=== PATIENT | male | born 1960 | race African-American/Black ===

== ENCOUNTER 2018-12-05 07:10 | Emergency (ER) | payer MEDICAID, MEDICARE ==
[~2018-12-05 07:10] MED LIST: ASPI-715 PO; CAR3.125 PO; ISOS30TA51 PO; LISI-357 PO; OXYC-489 PO
[2018-12-05] MEDS ORDERED: ASPIRIN 81 MG CHEW PO ONE (07:20)
--- NOTE | 2018-12-05 07:23 | ER Report ---
History and Physical Time Seen By MD: 07:18 Hx. of Stated Complaint: LEFT SIDED ABD PAIN HPI/ROS CHIEF COMPLAINT: Chest pain HISTORY OF PRESENT ILLNESS: 58-year-old male history of aortic dissection surgical repair comes emergency Department with left-sided chest discomfort the left inferior left costal margin and going on pretty persistently for the last 3 months been getting worse last couple of weeks patient denies any nausea vomiting diarrhea fever chills patient denies shortness of breath or cough patient denies abdominal pain at this time patient has no additional complaints and is described as a dictation dull and aching he had no pain when the discomfort is dissection before REVIEW OF SYSTEMS: Respiratory: No cough, no dyspnea. Cardiovascular: hasa chest pain, no palpitations. Gastrointestinal: No vomiting, no abdominal pain. Musculoskeletal: No back pain. Remainder of the 14 system rev: Yes Allergies: Coded Allergies: No Known Drug Allergies (Verified , 06/10/10) Home Meds Reported Medications Isosorbide Mononitrate (Imdur) 30 Mg Tab.sr.24h, 30 MG PO QDAY, 0 Refills 06/10/10 Oxycodone Hcl/Acetaminophen (Oxycodone-Apap 5-325 Tab) 1 Tab Tablet, 1 TAB PO Q4H, 0 Refills 06/10/10 Aspirin (Aspirin) 81 Mg Tablet.dr, 81 MG PO QDAY, 0 Refills 06/10/10 Lisinopril (Lisinopril) 5 Mg Tablet, 5 MG PO QDAY, 0 Refills 06/10/10 Carvedilol (Coreg) 3.125 Mg Tab, 3.125 MG PO BID, 0 Refills 06/10/10 Reviewed Nurses Notes: Yes Old Medical Records Reviewed: Yes Hx Alcohol Use: Yes (FRIEND STATES 3-4 BEERS DAILY) Constitutional Vital Sign - Last 24 Hours 12/05/18 12/05/18 12/05/18 12/05/18 07:10 07:12 07:16 07:30 Temp 97.3 Pulse 89 78 Resp 12 B/P (MAP) 166/90 (115) 166/90 149/99 (116) Pulse Ox 99 92 O2 Delivery Room Air 12/05/18 12/05/18 12/05/18 12/05/18 07:40 08:10 08:11 08:16 Pulse 94 87 84 Resp 5 B/P (MAP) 149/89 (109) Pulse Ox 100 98 98 12/05/18 12/05/18 08:30 08:46 Pulse 80 Resp 20 B/P (MAP) 143/101 (115) Pulse Ox 93 Physical Exam General Appearance: The patient is alert, has no immediate need for airway protection and no current signs of toxicity. [ ] Eyes: Pupils equal and round no injection. Respiratory: Chest is non tender, lungs are clear to auscultation. Cardiac: regular rate and rhythm [ ] Gastrointestinal: Abdomen is soft and non tender, no masses, bowel sounds normal. Musculoskeletal: Neck: Neck is supple and non tender. Extremities have full range of motion and are non tender. Skin: No rashes or lesions. [ ] DIFFERENTIAL DIAGNOSIS: After history and physical exam differential diagnosis was considered for aortic dissection pulmonary emboli myocardial ischemia muscle strain intercostal muscle strain Medical Decision Making Data Points Result Diagram: 12/05/18 0743 12/05/18 0743 Laboratory Hematology Test 12/05/18 07:43 White Blood Count 15.3 k/uL (4.5-11.0) H Red Blood Count 5.02 M/uL (4.00-5.60) Hemoglobin 15.0 g/dL (14.0-18.0) Hematocrit 44.5 % (42.0-52.0) Mean Corpuscular Volume 88.5 fL (80.0-96.0) Mean Corpuscular Hemoglobin 29.9 pg (26.0-33.0) Mean Corpuscular Hemoglobin Concent 33.8 g/dL (32.0-36.0) Red Cell Distribution Width 13.8 % (11.5-14.5) Platelet Count 260 K/uL (150-450) Mean Platelet Volume 8.9 fL (7.2-11.1) Neutrophils (%) (Auto) 84.7 % (39.4-72.5) H Lymphocytes (%) (Auto) 7.6 % (17.6-49.6) L Monocytes (%) (Auto) 6.6 % (4.1-12.4) Eosinophils (%) (Auto) 0.6 % (0.4-6.7) Basophils (%) (Auto) 0.5 % (0.3-1.4) Nucleated RBC Relative Count (auto) 0.0 /100WBC Neutrophils # (Auto) 13.0 K/uL (2.0-7.4) H Lymphocytes # (Auto) 1.2 K/uL (1.3-3.6) L Monocytes # (Auto) 1.0 K/uL (0.3-1.0) Eosinophils # (Auto) 0.1 K/uL (0.0-0.5) Basophils # (Auto) 0.1 K/uL (0.0-0.1) Nucleated RBC Absolute Count (auto) 0.01 K/uL Chemistry Test 12/05/18 07:43 Sodium Level 135 mmol/L (137-145) Potassium Level 4.3 mmol/L (3.5-5.0) Chloride Level 98 mmol/L (98-107) Carbon Dioxide Level 25 mmol/L (22-30) Blood Urea Nitrogen 11 mg/dl (9-21) Creatinine 0.70 mg/dl (0.66-1.25) Glomerular Filtration Rate Calc > 60.0 Random Glucose 178 mg/dl (75-110) Calcium Level 9.3 mg/dl (8.4-10.2) Total Bilirubin 0.5 mg/dl (0.2-1.3) Aspartate Amino Transf (AST/SGOT) 32 U/L (0-35) Alanine Aminotransferase (ALT/SGPT) 49 U/L (0-56) Alkaline Phosphatase 116 U/L (0-126) Troponin I < 0.012 ng/ml Total Protein 8.2 g/dl (6.3-8.2) Albumin 4.2 g/dl (3.5-5.0) Coagulation Test 12/05/18 07:43 D-Dimer Quantitative (PE/DVT) 1.87 ug/ml (0-0.50) ED Course/Re-evaluation ED Course ED course medical decision-making a 58-year-old male comes in with left-sided pleuritic chest discomfort CT abdomen and pelvis chest demonstrates a large metastatic pancreatic mass consistent with pancreatic carcinoma with lesions to the liver patient was informed of this will follow-up with primary care referral to oncology for further testing and workup and definitive plan Spoke with . of the cancer center a social work will be coming to bedside range department for him to be seen by oncology tomorrow Decision to Disposition Date: Dec 05, 2018 Decision to Disposition Time: 09:15 Depart Departure Latest Vital Signs Vital Signs Date Time Temp Pulse Resp B/P (MAP) Pulse Ox O2 Delivery O2 Flow Rate FiO2 12/05/18 08:46 80 20 93 12/05/18 08:30 143/101 (115) 12/05/18 07:16 97.3 Room Air Impression: Primary Impression: Pancreatic cancer metastasized to liver Condition: Condition Unchanged Disposition: HOME OR SELF-CARE Referrals: SOPHIA COOK DNP, ASSISTANT PROFESSOR OF ARCHAEOLOGY-BC 5 Days Patient Instructions: Pancreatic Cancer (DC) ANATOLIY SAMUEL MD Dec 05, 2018 07:22
[2018-12-05 07:49] LABS: PLATELET COUNT, AUTOMATED 260 K/uL (150-450)
[2018-12-05] MEDS ORDERED: IOPAMIDOL 76% 100 ML INFUS BTL 100 ML ONE (08:00)
--- NOTE | 2018-12-05 08:17 | EKG ---
FACILITY: [facility] PATIENT NAME: RUSS PATEL : [id number] MR: [id number] V: [id number] EXAM DATE: ORDERING PHYSICIAN: ANATOLIY SAMUEL TECHNOLOGIST: JORGE Robertson Reason : Blood Pressure : / mmHG Vent. Rate : 092 BPM Atrial Rate : 092 BPM P-R Int : 158 ms QRS Dur : 084 ms QT Int : 360 ms P-R-T Axes : 078 041 -18 degrees QTc Int : 445 ms Normal sinus rhythm Left ventricular hypertrophy with repolarization abnormality T inversion/flattening consistent with inf/lat ischemia vs normal variant. No previous ECGs available Confirmed by MERY MOULTON ([id number]) on 12/05/2018 1:26:08 PM Referred By: LIZZIE Confirmed By:MERY MOULTON
--- NOTE | 2018-12-05 08:36 | RADIOLOGY IMAGING REPORT ---
FACILITY: PATIENT NAME: Mikhail Boss : 1960 MR: [id number] V: [id number] EXAM DATE: ORDERING PHYSICIAN: ANATOLIY SAMUEL TECHNOLOGIST: Location: [facility] Patient: Mikhail Boss : 1960 Visit/Account:[id number] Date of Sevice: 12/05/2018 Study: Frontal and lateral views of the chest Indication: Left-sided chest pain Comparison study: June 10, 2010 Findings: PA and lateral views of the chest demonstrate no evidence of acute infiltrate. There is no evidence of pleural effusion. There is no evidence of pneumothorax. The patient is status post median sternotomy. There is prominence of the main pulmonary artery. Thi s may represent the presence of pulmonary hypertension. The visualized bony structures are unremarkable. IMPRESSION: No acute infiltrate. There is no evidence of pleural effusion or pneumothorax. There is prominence of the main pulmonary artery. This may represent underlying pulmonary hypertension. Report Dictated By: River Vo at 12/05/2018 8:28 AM Report E-Signed By: River Vo at 12/05/2018 8:29 AM WSN:[id number]
[2018-12-05 09:00] VITALS: BP 135/91
--- NOTE | 2018-12-05 09:09 | RADIOLOGY IMAGING REPORT ---
FACILITY: [facility] - [place] PATIENT NAME: Mikhail Boss : 1960 MR: [id number] V: [id number] EXAM DATE: ORDERING PHYSICIAN: ANATOLIY SAMUEL TECHNOLOGIST: Location: [facility] [place] Patient: Mikhail Boss : 1960 Visit/Account:[id number] Date of Sevice: 12/05/2018 CT CHEST ABDOMEN PELVIS W/CON HISTORY: Left chest pain x1 month. TECHNIQUE: CT chest, abdomen and pelvis with intravenous contrast. One of the following dose optimization techniques was utilized in the performance of this exam: Autom ated exposure control; adjustment of the mA and/or kV according to the patient's size; or use of an i terative reconstruction technique. Specific details can be referenced in the facility's radiology C T exam operational policy. CONTRAST: 75 mL Isovue-370 IV COMPARISON: CTA chest 07/10/2012 11/20/2010 FINDINGS: CHEST: Heart/vessels: Sequela of interposition graft repair ascending aorta. Chronic dissection flap aorti c arch extending into the common origin right brachiocephalic and left common carotid arteries, gross ly unchanged. Central pulmonary artery enlargement suggesting pulmonary hypertension. Mediastinum: Sequela of prior median sternotomy. Lymph nodes: No adenopathy. Lungs/pleura: Chronic appearing pleural parenchymal scarring mid right lung. No discrete pulmonary nodule, mass, infiltrate or pleural fluid. No pneumothorax. Small macroscopic fatty pleural lobule posterior lateral right lung base (3/302). Bones/soft tissues: Sequela of median sternotomy. Small bone island left lateral aspects upper thor acic vertebral body. Mild disc degenerative changes thoracic spine. ABDOMEN/PELVIS: Hepatobiliary: Several indistinct low attenuating hepatic lesions, newly evident from prior exams. For example, 0.9 x 1.0 cm left lobe (3/323) and right lobe 1.3 x 1.6 cm (3/378). Gallbladder and meredith e ducts unremarkable. Spleen: Negative. Adrenals: Right unremarkable. [place] left gland inseparable from a large mass within left upper quadr ant to be described below. Pancreas: Inseparable and most likely arising from pancreatic body and tail is a large complex heter ogeneous mass measuring approximately 9.2 x 11.5 x 8.6 cm. This mass abuts and may involve the adjac ent stomach and left adrenal gland. This mass abuts the distal celiac artery, celiac bifurcation, pr oximal celiac branch vessels and encases the splenic artery. This mass abuts the portal vein and lik obie occludes the splenic vein with numerous left upper quadrant splenic mesenteric collaterals. This mass closely approaches and may abut the left diaphragmatic renetta. Kidneys/: Several small low attenuating renal cortical cysts as well as other too small to charact erize low attenuating renal cortical lesions, likely also cysts. GI: Abutment of the stomach by the aforementioned distal pancreatic mass with possible direct invasi on. Mild left hemicolonic diverticulosis. Vessels/spaces/nodes: Several enlarged peripancreatic lymph nodes, the largest just cephalad to panc reatic neck measuring 1.6 x 1.7 cm (2/100). No other bulky adenopathy. Mild atherosclerosis. Fusif orm dilatation left greater than right common iliac arteries, left 2.5 cm maximum diameter. Trace fr ee fluid. No free gas. Bones/soft tissues: Degenerative changes lumbar spine, sacroiliac joints and hips. Punctate sclerot ic foci posterior medial right ilium and left acetabulum, likely bone islands. No suspicious osseous lesion. IMPRESSION: 1. Large complex left upper quadrant mass appearing to arise from the distal pancreas most suspiciou s for peripancreatic malignancy with abutment and/or involvement of the adjacent vasculature, stomach , adrenal gland and left diaphragmatic renetta as detailed above. 2. Several enlarged peripancreatic lymph nodes most consistent with metastatic disease. 3. Several ill-defined hepatic lesions most consistent with metastatic disease. 4. Other chronic and/or benign-appearing changes detailed ab ve. Results were called to Dr. ANATOLIY SAMUEL at 12/05/2018 9:02 AM. Report Dictated By: Manoj Worley MD at 12/05/2018 8:38 AM Report E-Signed By: Manoj Worley MD at 12/05/2018 9:02 AM WSN:[id number]
== END 2018-12-05 10:13 | disposition home or self-care (01) ==
LOC: ER 07:26
DX: R07.81 Pleurodynia (principal); C25.9 Malignant neoplasm of pancreas, unspecified; C78.7 Secondary malignant neoplasm of liver and intrahepatic bile duct
CPT/HCPCS: 71046; 71260; 74177; 84484; 85025; 85379; 93005; 99284; A9270; Q9967; 82040; 82247; 82310; 82374; 82435; 82565; 82947; 84075; 84132; 84155; 84295; 84450; 84460; 84520

== ENCOUNTER 2019-01-02 00:24 | Day surgery (SDC) | payer MEDICARE ==
[~2019-01-02] VITALS: Ht 180.3 cm; Wt 85.3 kg
[~2019-01-02 00:24] MED LIST changes: +LORA-630 PO; +ONDA8TAB91 PO; +OXYC10TA67 PO; +PROC10TA4 PO
[2019-01-02] MEDS ORDERED: ceFAZolin(*) 2GM/D5W 50ML 50 ML IVPB ONE (07:30)
[2019-01-02] MEDS ORDERED: fentaNYL CITR 100 MCG/2 ML AMP ONE ×2 (12:55→14:15)
[2019-01-02] MEDS ORDERED: ONDANSETRON 4 MG/2 ML VIAL ONE (12:56)
[2019-01-02] MEDS ORDERED: DEXAMETHASONE SOD PHOS 10MG/ML ONE (12:56)
[2019-01-02] MEDS ORDERED: PROPOFOL EMUL(*) 10MG/ML 20 ML 20 ML ONE (12:56)
[2019-01-02] MEDS ORDERED: LIDOCAINE 2% IV 100 MG/5ML SYR ONE (12:56)
[2019-01-02 12:58] VITALS: BP 132/89
[2019-01-02] MEDS ORDERED: SUGAMMADEX SOD 200 MG/2 ML SDV ONE (13:03)
[2019-01-02] MEDS ORDERED: LIDOCAINE/SOD BICARB 8.4% SYR ID ONE (13:05)
[2019-01-02] MEDS ORDERED: FAMOTIDINE 20 MG TAB PO ONE (13:05)
[2019-01-02] MEDS ORDERED: NORMOSOL R SOLN(*) 1000 ML BAG 1,000 ML IV PRN (13:05)
[2019-01-02] MEDS ORDERED: MIDAZOLAM 2 MG/2 ML VIAL IVP PRN (13:05)
[2019-01-02] MEDS ORDERED: BUPIVACAINE ONE (13:38)
[2019-01-02] MEDS ORDERED: HEPARIN SOD LCK FLSH 100 UN/ML ONE ×2 (13:38→13:41)
[2019-01-02] MEDS ORDERED: EPINEPHRINE ONE (13:38)
[2019-01-02] MEDS ORDERED: NS(*) 0.9% 10 ML VIAL 20 ML ONE (13:38)
[2019-01-02] MEDS ORDERED: NS(*) 0.9% 10 ML VIAL 30 ML ONE (14:12)
--- NOTE | 2019-01-02 14:53 | Short(Outpt) Discharge Summary ---
Discharge Summary Reason for Hosp/Final Diag: (1) Pancreatic cancer Hospital Course & Plan: pt presented for mediport placement. he tolerated the procedure well and will be discharged home when criteria met. Departure Discharge to: Home Discharge Instructions Home Meds Active Scripts Lorazepam (LORAZEPAM) 0.5 Mg Tablet, 1 MG PO Q6H PRN for ANXIETY for 30 Days, #30 TAB 1 Refill Prov:JOHANA MEDEIROS [employer] SPECIALIST-C 01/01/19 Ondansetron Hcl (ZOFRAN) 8 Mg Tablet, 8 MG PO Q8H PRN for NAUSEA/VOMITING for 30 Days, #30 TAB 3 Refills Prov:JOHANA MEDEIROS [employer] SPECIALIST-C 01/01/19 Prochlorperazine Maleate (Compazine) 10 Mg Tablet, 1 TAB PO Q8H PRN for NAUSEA for 30 Days, #30 TAB 3 Refills Prov:JOHANA MEDEIROS [employer] SPECIALIST-C 01/01/19 Oxycodone Hcl 10 Mg Tab (OXYCODONE HCL 10 MG TAB) 10 Mg Tablet, 10 MG PO Q4H PRN for PAIN for 30 Days, #60 TAB Prov:JOHANA MEDEIROS [employer] SPECIALIST-C 01/01/19 Discontinued Reported Medications Isosorbide Mononitrate (Imdur) 30 Mg Tab.sr.24h, 30 MG PO QDAY, 0 Refills 06/10/10 Oxycodone Hcl/Acetaminophen (Oxycodone-Apap 5-325 Tab) 1 Tab Tablet, 1 TAB PO Q4H, 0 Refills 06/10/10 Aspirin (Aspirin) 81 Mg Tablet.dr, 81 MG PO QDAY, 0 Refills 06/10/10 Lisinopril (Lisinopril) 5 Mg Tablet, 5 MG PO QDAY, 0 Refills 06/10/10 Carvedilol (Coreg) 3.125 Mg Tab, 3.125 MG PO BID, 0 Refills 06/10/10 Diet: Regular Activity: As Tolerated Special Instructions: ok to shower tomorrow. f/u oncology as instructed. f/u dr. j carlos menchaca as needed ([phone]). LUIS MENCHACA Jan 02, 2019 14:53
--- NOTE | 2019-01-02 15:14 | RADIOLOGY IMAGING REPORT ---
[place] [facility] [place] Mikhail Boss : 1960 MR: [id number] V: [id number] EXAM DATE: ORDERING PHYSICIAN: LUIS AGUIRRE TECHNOLOGIST: Location: [facility] [place] Patient: Mikhail Boss : 1960 Visit/Account:[id number] Date of Sevice: 01/02/2019 C-ARM FLUORO 1 HR INDICATION: Port placement. PROCEDURE: Fluoroscopic guidance was provided for Dr. Aguirre. FLUOROSCOPY DOSE: 0.4979 mGy cumulative dose (Ka,r)/air Kerma FINDINGS: Images demonstrate right-sided port with the tip terminating 1.5 cm below the upper cavoatr ial junction, within the right atrium. There are sternal closure wires. IMPRESSION: Fluoroscopy was provided. Report Dictated By: Racquel Arnold at 01/02/2019 3:04 PM Report E-Signed By: Racqule Arnold at 01/02/2019 3:05 PM WSN:[id number]
--- NOTE | 2019-01-02 15:30 | OPERATIVE REPORT 1 ---
EVENT DATE: January 02, 2019 SURGEON: Eric Aguirre MD ANESTHESIOLOGIST: Garrett Kurtz MD ANESTHESIA: General and local. MANAGER OF SOFTWARE DEVELOPMENT: None. PREOPERATIVE DIAGNOSIS Pancreatic cancer. POSTOPERATIVE DIAGNOSIS Pancreatic cancer. PROCEDURE PERFORMED Mediport placement in the right internal jugular vein with ultrasound and fluoroscopic guidance. INTRAVENOUS FLUIDS Crystalloid. ESTIMATED BLOOD LOSS Minimal. SPECIMENS None. COMPLICATIONS None. INDICATIONS This is a 58-year-old male with pancreatic cancer needing a mediport for chemotherapy access. Risks and benefits of the procedure were explained, and consent was signed. DESCRIPTION OF PROCEDURE Patient was taken to the operating room and placed in the supine position. General anesthesia was administered per the anesthesia team. Patient was prepped and draped in the normal sterile fashion. He was placed in a Trendelenburg position. Ultrasound guidance was used to easily advance the Cook needle into the right internal jugular vein. Dark red, nonpulsatile blood was returned. Guidewire was easily advanced. Cook needle was removed. Fluoroscopy confirmed appropriate placement of the guidewire. Local analgesia was injected in the right chest wall and the right neck, and a 3 cm transverse incision was made. An inferior pocket was created. A small incision was made at the entry site of the guidewire. The mediport had been flushed and found to have no defects. It was passed through the subcutaneous tissue with the tunneling device from the right chest wall to the right neck incision. The port was secured in place with 2-0 Prolene stitches. Fluoroscopy was used to cut the catheter to the appropriate size. Dilator and sheath were advanced over the guidewire. The dilator and guidewire were removed. The catheter was advanced through the tear-away sheath, and the tear-away sheath was removed. Fluoroscopy confirmed appropriate placement of the tip of the catheter and a good curve at the neck. The mediport was aspirated and flushed with heparinized saline, which it did easily. Chest wall incision was closed with 3-0 Vicryl interrupted stitches, followed by running 4-0 Monocryl subcuticular stitch, and the right neck incision was closed with an interrupted subcuticular 4-0 Monocryl stitch. Appropriate dressings were applied. Patient tolerated the procedure well. There were no complications. [facility]
--- NOTE | 2019-01-02 15:46 | RADIOLOGY IMAGING REPORT ---
FACILITY: [facility] PATIENT NAME: Mikhail Boss : 1960 MR: [id number] V: [id number] EXAM DATE: ORDERING PHYSICIAN: LUIS AMADO TECHNOLOGIST: Location: [facility] Patient: Mikhail Boss : 1960 Visit/Account:[id number] Date of Sevice: 01/02/2019 CHEST SINGLE AP 01/02/2019 14:53 hours. HISTORY: Port placement. COMPARISON: 12/05/2018 and studies dating to 11/21/2009. TECHNIQUE: Portable AP view of the chest. FINDINGS: TUBES/LINES/HARDWARE: Right port terminates at the upper cavoatrial junction. There are sternal closu re wires. PULMONARY/PLEURA: Stable scarring or atelectasis at the junction of the right mid and lower lung fiel ds. Left lung is clear. There is no pneumothorax or pleural effusion. CARDIOMEDIASTINAL: The cardiac silhouette is at the upper limits of normal. The mediastinal silhouett e is within normal limits. Main pulmonary artery is enlarged, stable. BONES/SOFT TISSUES: No acute osseous abnormality. There is mild degenerative change of the spine. The visible abdomen is normal. IMPRESSION: 1. Right port has been placed. No pneumothorax. 2. No acute cardiopulmonary process. 3. Stable enlargement of the main pulmonary artery. Report Dictated By: Racquel Arnold at 01/02/2019 3:35 PM Report E-Signed By: Racquel Arnold at 01/02/2019 3:37 PM WSN:[id number]
[2019-01-02 16:00] VITALS: BP 141/88
[2019-01-02 16:15] VITALS: BP 118/84
[2019-01-02 16:17] VITALS: BP 131/81
[2019-01-02 16:18] VITALS: BP 142/84
== END 2019-01-02 16:00 | disposition home or self-care (01) ==
LOC: OR 00:24
PROVIDERS: ATTEND Surgery
DX: C61 Malignant neoplasm of prostate (principal)
CPT/HCPCS: 36561; 71045; 76000; A9270; C1788; J1100; J2001; J2250; J2405; J2704; J3010; J0690

== ENCOUNTER 2019-01-03 14:08 | Inpatient (IN) | payer MEDICARE ==
[~2019-01-03] VITALS: Ht 180.3 cm; Wt 88.5 kg
[2019-01-03] VITALS (11 sets, daily range): BP systolic 112–147; BP diastolic 70–86
--- NOTE | 2019-01-03 14:16 | ER Report ---
History and Physical Time Seen By MD: 14:12 HPI/ROS CHIEF COMPLAINT: Dark stools HISTORY OF PRESENT ILLNESS: Patient is a 58 male here with complaints of dark stools, diarrhea for approximately one week. Patient was recently diagnosed with metastatic pancreatic cancer and was started on chemotherapy this morning. Patient reportedly developed diarrhea which was black and admitted to having multiple black stools over the past several days. Patient admits to feeling weaker than normal prompting transfer to the emergency department for further evaluation. Cancer Center nurse practitioner notified me that the patient's white blood cell count was 27.4 which appears to be new compared to prior labs. Also, patient's hemoglobin was found be 8.2 which is down from 13.1 compared to prior labs on December 07. Chest x-ray was completed and was found to be unremarkable. Urinalysis was noninfectious. Of note, the patient is a poor historian. REVIEW OF SYSTEMS: Constitutional: No fever, no chills. + Generalized weakness, fatigue Eyes: No discharge. ENT: No sore throat. Cardiovascular: No chest pain, no palpitations. Respiratory: No cough, no shortness of breath. Gastrointestinal: No new abdominal pain, no vomiting. + Black loose stools Genitourinary: No hematuria. Musculoskeletal: No back pain. Skin: No rashes. Neurological: No headache. Allergies: Coded Allergies: No Known Drug Allergies (Verified , 01/03/19) Home Meds Active Scripts Lorazepam (LORAZEPAM) 0.5 Mg Tablet, 1 MG PO Q6H PRN for ANXIETY for 30 Days, #30 TAB 1 Refill Prov:JOHANA MEDEIROSP-C 01/01/19 Ondansetron Hcl (ZOFRAN) 8 Mg Tablet, 8 MG PO Q8H PRN for NAUSEA/VOMITING for 30 Days, #30 TAB 3 Refills Prov:TECHNOLOGY LAB TEACHERJOHANA BERTRAND PSYCHOSOCIAL REHABILITATION COUNSELOR-C 01/01/19 Prochlorperazine Maleate (Compazine) 10 Mg Tablet, 1 TAB PO Q8H PRN for NAUSEA for 30 Days, #30 TAB 3 Refills Prov:JOHANA MEDEIROS PSYCHOSOCIAL REHABILITATION COUNSELOR-C 01/01/19 Oxycodone Hcl 10 Mg Tab (OXYCODONE HCL 10 MG TAB) 10 Mg Tablet, 10 MG PO Q4H PRN for PAIN for 30 Days, #60 TAB Prov:JOHANA MEDEIROS PSYCHOSOCIAL REHABILITATION COUNSELOR-C 01/01/19 Discontinued Reported Medications Isosorbide Mononitrate (Imdur) 30 Mg Tab.sr.24h, 30 MG PO QDAY, 0 Refills 06/10/10 Oxycodone Hcl/Acetaminophen (Oxycodone-Apap 5-325 Tab) 1 Tab Tablet, 1 TAB PO Q4H, 0 Refills 06/10/10 Aspirin (Aspirin) 81 Mg Tablet.dr, 81 MG PO QDAY, 0 Refills 06/10/10 Lisinopril (Lisinopril) 5 Mg Tablet, 5 MG PO QDAY, 0 Refills 06/10/10 Carvedilol (Coreg) 3.125 Mg Tab, 3.125 MG PO BID, 0 Refills 06/10/10 Hx Smoking: No Hx Alcohol Use: No Constitutional Vital Sign - Last 24 Hours 01/03/19 14:19 Temp 98.4 Pulse 98 Resp 20 B/P (MAP) 117/80 Pulse Ox 94 O2 Delivery Room Air Physical Exam General Appearance: The patient is alert, has no immediate need for airway protection and no signs of toxicity. No acute distress Eyes: Pupils equal and round no pallor or injection. ENT, Mouth: Mucous membranes are dry Respiratory: There are no retractions, lungs are clear to auscultation. Cardiovascular: Regular rate and rhythm. Gastrointestinal: Generalized tenderness without rebound or guarding Neurological: No focal neurological deficits, cranial nerves intact Skin: Warm and dry, no rashes. Musculoskeletal: Neck is supple non tender. Extremities are nontender, nonswollen and have full range of motion. DIFFERENTIAL DIAGNOSIS: After history and physical exam differential diagnosis was considered for chemotherapy side effect, diverticulitis, malignancy, duo denal ulcer, AVM Medical Decision Making Data Points Result Diagram: 01/03/19 1426 01/03/19 1426 Laboratory Hematology Test 01/03/19 14:26 White Blood Count 28.3 k/uL (4.5-11.0) H Red Blood Count 2.83 M/uL (4.00-5.60) L Hemoglobin 8.2 g/dL (14.0-18.0) *L Hematocrit 24.8 % (42.0-52.0) *L Mean Corpuscular Volume 87.7 fL (80.0-96.0) Mean Corpuscular Hemoglobin 28.9 pg (26.0-33.0) Mean Corpuscular Hemoglobin Concent 33.0 g/dL (32.0-36.0) Red Cell Distribution Width 14.3 % (11.5-14.5) Platelet Count 246 K/uL (150-450) Mean Platelet Volume 8.1 fL (7.2-11.1) Neutrophils (%) (Auto) % (39.4-72.5) Lymphocytes (%) (Auto) % (17.6-49.6) Monocytes (%) (Auto) % (4.1-12.4) Eosinophils (%) (Auto) % (0.4-6.7) Basophils (%) (Auto) % (0.3-1.4) Nucleated RBC Relative Count (auto) /100WBC Neutrophils # (Auto) K/uL (2.0-7.4) Lymphocytes # (Auto) K/uL (1.3-3.6) Monocytes # (Auto) K/uL (0.3-1.0) Eosinophils # (Auto) K/uL (0.0-0.5) Basophils # (Auto) K/uL (0.0-0.1) Nucleated RBC Absolute Count (auto) K/uL Neutrophils % (Manual) 93 % (39.4-72.5) H Band Neutrophils % 5 % Lymphocytes % (Manual) 2 % (17.6-49.6) L Monocytes % (Manual) 0 % (4.1-12.4) L Eosinophils % (Manual) 0 % (0.4-6.7) L Basophils % (Manual) 0 % (0.3-1.4) L Chemistry Test 01/03/19 14:26 Sodium Level 133 mmol/L (137-145) Potassium Level 3.9 mmol/L (3.5-5.0) Chloride Level 97 mmol/L (98-107) Carbon Dioxide Level 24 mmol/L (22-30) Blood Urea Nitrogen 11 mg/dl (9-21) Creatinine 0.50 mg/dl (0.66-1.25) Glomerular Filtration Rate Calc > 60.0 Random Glucose 234 mg/dl (75-110) Lactate 2.8 mmol/L (0.7-2.1) Calcium Level 8.3 mg/dl (8.4-10.2) Magnesium Level 1.9 mg/dl (1.7-2.2) Total Bilirubin 0.2 mg/dl (0.2-1.3) Aspartate Amino Transf (AST/SGOT) 44 U/L (0-35) Alanine Aminotransferase (ALT/SGPT) 69 U/L (0-56) Alkaline Phosphatase 163 U/L (0-126) Total Protein 6.4 g/dl (6.3-8.2) Albumin 3.1 g/dl (3.5-5.0) Lipase 84 U/L (23-300) Coagulation Test 01/03/19 14:26 EKG/Imaging Imaging CT abdomen and pelvis pending ED Course/Re-evaluation ED Course Patient is a 58-year-old male with a history of pancreatic cancer just started on chemotherapy today and found to have black stools which the patient reports he has been having for the past several days. Patient admits to feeling weaker than normal prompting transfer to the emergency department for further evaluation. Cancer Center nurse practitioner notified me that the patient's white blood cell count was 27.4 which appears to be new compared to prior labs. Also, patient's hemoglobin was found be 8.2 which is down from 13.1 compared to prior labs on December 07. Chest x-ray was completed and was found to be unremarkable. Urinalysis was noninfectious. Hemoccult test was completed and found to be positive. Normal saline bolus, fentanyl, Protonix bolus were administered. I discussed the patient with Dr. Judd who accepted the patient to the surgical service. Patient was hemodynamically stable at time of admission. Decision to Disposition Date: Jan 03, 2019 Decision to Disposition Time: 15:21 Depart Departure Latest Vital Signs Vital Signs Date Time Temp Pulse Resp B/P (MAP) Pulse Ox O2 Delivery O2 Flow Rate FiO2 01/03/19 14:19 98.4 98 20 117/80 94 Room Air Impression: Primary Impression: GI (gastrointestinal hemorrhage) Additional Impression: Pancreatic cancer Condition: Condition Unchanged Disposition: Admitted from ER Problem Qualifiers MAC BALLARD DO Jan 03, 2019 14:16
[2019-01-03] MEDS ORDERED: PANTOPRAZOLE SOD 40 MG IV VIAL IVP ONE (14:20)
[2019-01-03] MEDS: ONDANSETRON 4 MG/2 ML VIAL IVP ONE (14:20)
[2019-01-03] MEDS ORDERED: NS(*) 0.9% 1000 ML BAG 1,000 ML IV ONE (14:20)
[2019-01-03 14:47] LABS: PLATELET COUNT, AUTOMATED 246 K/uL (150-450)
[2019-01-03] MEDS ORDERED: IOPAMIDOL 76% 100 ML INFUS BTL 100 ML ONE (14:55)
[2019-01-03] MEDS ORDERED: fentaNYL CITR 100 MCG/2 ML AMP IVP ONE (15:20)
[2019-01-03] MEDS ORDERED: FLUSH 10 ML SYR IVP PRN (15:25)
[2019-01-03] MEDS ORDERED: ONDANSETRON 4 MG/2 ML VIAL IVP PRN (15:25)
[2019-01-03] MEDS ORDERED: NS(*) 0.9% 1000 ML BAG 1,000 ML IV PRN (15:25)
[2019-01-03] MEDS ORDERED: NALOXONE HCL 0.4 MG/ML VIAL IVP PRN (15:25)
[2019-01-03 15:41] LABS: INR 1.1
--- NOTE | 2019-01-03 16:02 | RADIOLOGY IMAGING REPORT ---
FACILITY: [facility] [place] PATIENT NAME: Mikhail Boss : 1960 MR: [id number] V: [id number] EXAM DATE: ORDERING PHYSICIAN: MAC BALLARD TECHNOLOGIST: Location: [facility] Patient: Mikhail Boss : 1960 Visit/Account:[id number] Date of Sevice: 01/03/2019 CT ABDOMEN PELVIS W/ CON HISTORY: GI bleed TECHNIQUE: Following administration of IV contrast contiguous axial images acquired through the abdom en/pelvis. Coronal and sagittal reformatting also performed.Dose Lowering Technique One of the following dose optimization techniques was utilized in the performance of this exam: Autom ated exposure control; adjustment of the mA and/or kV according to the patient's size; or use of an i terative reconstruction technique. Specific details can be referenced in the facility's radiology C T exam operational policy. CONTRAST: 75 mL Isovue-370 COMPARISON: December 05, 2018 FINDINGS: Visualized lung bases: Fat-containing pleural-based nodule posterior lateral right lower lobe appear s unchanged Hepatobiliary: Previously described masses throughout the liver have increased in both size and numb er. The largest along the inferior medial right lobe now measuring approximately 3 cm in diameter pr eviously measuring 1.3 cm in diameter. The gallbladder appears contracted Spleen: Negative. Adrenals: Right adrenal gland is unremarkable. Left adrenal gland is contiguous with large left upp er quadrant mass to be discussed below Pancreas: Huge heterogeneous mass appears to extend from the body and tail the pancreas has increase d in size now measuring 13 x 14 x 8.8 cm previously measuring 9.2 x 11.5 x 8.6 cm this mass appears t o be invading the adjacent stomach, and left diaphragmatic renetta. The mass is encasing the celiac lisa nk and proximal branch vessels including the splenic artery. 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 GI: Invasion of the stomach by the adjacent pancreatic mass. There is diverticulosis of the left-sided the colon. 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 Mild ath erosclerotic calcifications. There has been an interval increase in the previously described lymphadenopathy. The previously refe renced 1.6 x 1.7 cm lymph node just cephalad to the pancreatic neck now measures 3.3 x 2.3 cm there i s a trace amount of free pelvic fluid . Please see above discussion under pancreas Bones/soft tissues: Spondylotic changes of the lumbar spine again noted small squatted foci posterio r medial right ilium and left acetabulum appear relatively unchanged Additional findings: None pertinent. IMPRESSION: The previously described huge heterogeneous mass extending from the body and tail the pancreas has in creased in size as detailed above this mass appears to be invading the adjacent stomach and left diap hragmatic renetta. Masses also encasing the celiac trunk and proximal branch vessels. 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 Increase in the metastatic adenopathy Increase in the hepatic metastases Diverticulosis of the left side of the colon There is a focal narrowing in the distal transverse colon as described above which could represent an area spasm although an annular lesion not excluded. Additional chronic findings as described Report Dictated By: Olive Colunga MD at 01/03/2019 3:34 PM Report E-Signed By: Olive Colunga MD at 01/03/2019 3:54 PM WSN:[id number]
[2019-01-03] MEDS: PANTOPRAZOLE SOD(*)40 MG VIAL 80 MG in NS(*) 0.9% 100 ML BAG 100 ML IV SCH (16:30)
--- NOTE | 2019-01-03 18:13 | Gen Surgery History & Physical ---
History of Present Illness Chief Complaint Melena, abdominal pain History of Present Illness 58-year-old gentleman with metastatic pancreatic cancer presents to the emergency room with abdominal pain and melena. He reports having had occasional melena over the last week or 2. No lightheadedness or dizziness. He attributes his abdominal pain to his pancreatic cancer. He had a chemotherapy port placed yesterday without problems and was starting his 1st round of chemotherapy today. He's never had an EGD or colonoscopy. History Home Meds Active Scripts Lorazepam (LORAZEPAM) 0.5 Mg Tablet, 1 MG PO Q6H PRN for ANXIETY for 30 Days, #30 TAB 1 Refill Prov:JOHANA MEDEIROS VP TREASURER-C 01/01/19 Ondansetron Hcl (ZOFRAN) 8 Mg Tablet, 8 MG PO Q8H PRN for NAUSEA/VOMITING for 30 Days, #30 TAB 3 Refills Prov:JOHANA MEDEIROS VP TREASURER-C 01/01/19 Prochlorperazine Maleate (Compazine) 10 Mg Tablet, 1 TAB PO Q8H PRN for NAUSEA for 30 Days, #30 TAB 3 Refills Prov:JOHANA MEDEIROS VP TREASURER-C 01/01/19 Oxycodone Hcl 10 Mg Tab (OXYCODONE HCL 10 MG TAB) 10 Mg Tablet, 10 MG PO Q4H PRN for PAIN for 30 Days, #60 TAB Prov:JOHANA MEDEIROS VP TREASURER-C 01/01/19 Discontinued Reported Medications Isosorbide Mononitrate (Imdur) 30 Mg Tab.sr.24h, 30 MG PO QDAY, 0 Refills 06/10/10 Oxycodone Hcl/Acetaminophen (Oxycodone-Apap 5-325 Tab) 1 Tab Tablet, 1 TAB PO Q4H, 0 Refills 06/10/10 Aspirin (Aspirin) 81 Mg Tablet.dr, 81 MG PO QDAY, 0 Refills 06/10/10 Lisinopril (Lisinopril) 5 Mg Tablet, 5 MG PO QDAY, 0 Refills 06/10/10 Carvedilol (Coreg) 3.125 Mg Tab, 3.125 MG PO BID, 0 Refills 06/10/10 Allergies: Coded Allergies: No Known Drug Allergies (Verified , 01/03/19) Review of Systems All Systems Reviewed/Normal: Yes, Except as Noted Gastrointestinal: Melena Exam General Appearance: Alert, Awake, No Acute Distress, Afebrile Neuro: No Gross deficits Eyes: PERRLA GI: Other (soft, diffuse tenderness to palpation, distended, no peritoneal signs) Extremities: Warm, Perfused Psych: Alert & Oriented X3, Appropriate Mood & Affect Medical Decision Making Data Points Result Diagram: 01/03/19 1426 01/03/19 1426 Assessment and Plan Problems: (1) GI (gastrointestinal hemorrhage) Status: Acute Assessment & Plan: 01/03/19: Based on his CT scan from today, the pancreatic cancer appears to be progressing and now appears to be invading into the adj acent stomach wall. This certainly could be the source of his GI bleeding. He has been using Aleve for abdominal pain. Will avoid blood thinners, start PPI drip, and we will plan on EGD today to look for the source of the bleeding, I suspect either peptic ulcer disease or the neoplasm eroding into the stomach. I have explained this plan to the patient in detail along with the alternatives, risks, and expected recovery. He indicates his understanding of this discussion and his questions have been answered. He would like to proceed with this plan including EGD. I also discussed a blood transfusion but he would like to hold off until his next blood count is completed this evening to see if his hemoglobin declines further. He is asymptomatic from his anemia and so this is not unreasonable. (2) Pancreatic cancer Status: Chronic Condition Guarded Time Spent: < 30 min Venous Thromboembolism VTE Risk Physician Assess for VTE Risk: Yes Patient's VTE Risk: Low VTE Diagnostic Test 2 Days Prior to Admit: No Antithrombotics Is Pt On Any Antithrombotics?: No Problem Qualifiers (1) GI (gastrointestinal hemorrhage): GI bleed type/associated pathology: unspecified gastrointestinal hemorrhage type Qualified Codes: K92.2 - Gastrointestinal hemorrhage, unspecified (2) Pancreatic cancer: Pancreatic malignancy location: body of pancreas Qualified Codes: C25.1 - Malignant neoplasm of body of pancreas ELLIOTT BANDA MD Jan 03, 2019 18:13
[2019-01-03] MEDS: MORPHINE 2 MG/ML SYR IVP PRN ×2 (19:17→21:45)
[2019-01-03] MEDS ORDERED: NORMOSOL R SOLN(*) 1000 ML BAG 1,000 ML IV ONE (20:05)
[2019-01-03] MEDS ORDERED: KETAMINE HCL-NS 50 MG/5 ML SYR ONE (20:14)
[2019-01-03] MEDS: SUCRALFATE 1 GM TAB PO SCH (21:00)
[2019-01-03] MEDS ORDERED: NS(*) 0.9% 500 ML BAG 500 ML ONE (22:09)
[2019-01-03] MEDS ORDERED: ACETAMINOPHEN 325 MG TAB PO PRN (22:40)
[2019-01-03] MEDS: HYDROmorphone HCL 2 MG/ML SDV IVP PRN (23:10)
[2019-01-04] VITALS (13 sets, daily range): BP systolic 109–135; BP diastolic 66–80
[2019-01-04] MEDS: PANTOPRAZOLE SOD(*)40 MG VIAL 80 MG in NS(*) 0.9% 100 ML BAG 100 ML IV SCH (01:12)
[2019-01-04] MEDS: HYDROmorphone HCL 2 MG/ML SDV IVP PRN ×8 (01:23→19:07)
[2019-01-04 06:13] LABS: PLATELET COUNT, AUTOMATED 210 K/uL (150-450)
[2019-01-04] MEDS: SUCRALFATE 1 GM TAB PO SCH ×4 (06:29→20:44)
--- NOTE | 2019-01-04 07:22 | General Surgery Progress Note ---
Subjective Progress Notes Subjective No problems after EGD last night. No BMs or melena. Physical Exam Vital Signs Date Time Temp Pulse Resp B/P (MAP) Pulse Ox O2 Delivery O2 Flow Rate FiO2 01/04/19 03:43 98.3 92 12 128/72 01/04/19 03:00 99 01/03/19 22:20 Nasal Cannula 01/03/19 21:44 4.0 Intake and Output 01/04/19 07:04 Intake Total 2200 ml Output Total 950 ml Balance 1250 ml Intake IV Total 1200 ml Blood Product 1000 ml Output Stool Total 950 ml # Voids 5 General Appearance: Alert, Awake, No Acute Distress, Afebrile GI: Other (Soft, distended, diffuse TTP) Extremities: Warm, Perfused Result Diagram: 01/04/1951001/04/19510 Assessment and Plan Problems: (1) GI (gastrointestinal hemorrhage) Status: Acute Assessment & Plan: 01/03/19: Based on his CT scan from today, the pancreatic cancer appears to be progressing and now appears to be invading into the [place] stomach wall. This certainly could be the source of his GI bleeding. He has been using Aleve for abdominal pain. Will avoid blood thinners, start PPI drip, and we will plan on EGD today to look for the source of the bleeding, I suspect either peptic ulcer disease or the neoplasm eroding into the stomach. I have explained this plan to the patient in detail along with the alternatives, risks, and expected recovery. He indicates his understanding of this discussion and his questions have been answered. He would like to proceed with this plan including EGD. I also discussed a blood transfusion but he would like to hold off until his next blood count is completed this evening to see if his hemoglobin declines further. He is asymptomatic from his anemia and so this is not unreasonable. 01/04/19: EGD reveals the pancreatic cancer has eroded into his stomach and is ulcerated. Friable but no active bleeding. Will convert IV PPI to PO PPI and add carafate. H/H up after transfusion. Will stop IV fluids and start regular diet and recheck H/H this afternoon. Hopeful for d/c this afternoon. It'll be important to resume chemotherapy HUGH as there's really nothing surgically that I can offer regarding his advanced pancreatic cancer or his gastric involvement with ulcerations. I discussed this with him and he seems to understand. (2) Pancreatic cancer Status: Chronic Condition Stable. Time Spent: < 30 min Exam Sepsis Risk: Sepsis Risk Problem Qualifiers (1) GI (gastrointestinal hemorrhage): GI bleed type/associated pathology: unspecified gastrointestinal hemorrhage type Qualified Codes: K92.2 - Gastrointestinal hemorrhage, unspecified (2) Pancreatic cancer: Pancreatic malignancy location: body of pancreas Qualified Codes: C25.1 - Ma lignant neoplasm of body of pancreas ELLIOTT BANDA MD Jan 04, 2019 07:22
[2019-01-04] MEDS: traMADol 50 MG TAB PO PRN ×2 (07:40→12:08)
[2019-01-04] MEDS: PANTOPRAZOLE SOD 40 MG TABEC PO SCH ×2 (08:36→20:45)
[2019-01-04] MEDS ORDERED: OXYC-823 PO (12:14)
--- NOTE | 2019-01-04 15:51 | Medical Nutrition Therapy ---
Nutrition Anthropometrics Height (Inches): 71.00 Height (Calculated Centimeters: 180.994899 Weight (Pounds): 195 Weight (Calculated Kilograms): 88.451 BMI: 27.2 Hx Weight Loss: Yes Dean Nutrition Score: Adequate Dean Nutrition Risk Score: 20 Dietary Referral Nutrition Risk Factors: Nutrition Risk Comment: Physical Findings Physical Appearance: Overweight BMI 25-29 Skin Appearance Skin Appearance: Edema Edema Location Modifier: Edema Location: Type of Edema: Degree of Edema: Gastrointestinal Symptoms GI Symtoms: Appetite Changes, Change in Bowel Pattern Tube Present: Bowel Sounds: Recent Bowel Pattern: Stool Characteristics: Black Nutritional Diagnosis Nutritional Risk Acuity 3: Cancer Past Medical History: metastatic pancreatic cancer Nutritional Acuity: 2-Moderate Nutrition Diagnosis: Inadequate Food Intake Nutrition Etiology: Physiological Causes Nutrition Problem/Etiology/Sym: decreased appetite Energy Requirement: 2317 Protein Requirement: 115 Fluid Requirement: 2317 Diet Type: Diet as Tolerated OSBALDO/REG Nutrition Intervention: Between meal supplement Diet Comment To RSA: OFFER BOOST OR MIGHTY SHAKE AT EVERY MEAL Nutrition Monitoring & Eval Nutrition Goals: Eat 75-100% Meal Nutrition Follow-Up: Poor Intake Nutrition Monitoring: Intake, Weight RD Patient Assessment Time: [address] Assessment Type: RD Assessment Patient Nutrition Acuity: 2-Moderate Follow Up Date: Jan 11, 2019 Nutritional Comment: 01/04: Pt admit for GI bleed. Recently started chemo tx at cancer center. Spoke with pt briefly at the cancer center. Pt c/o decreased appetite, per nursing assessment pt reported 20 lb wt loss over past month. Pt currently on OSBALDO, ate 50% x 1 meal. Will offer oral nutrition supplement to prevent further weight loss. Will monitor for any malabsorption, need for pancreatic enzyme replacement.DANDRE ANTHONY Jan 04, 2019 15:51
[2019-01-04] MEDS ORDERED: SUCR1TAB51 PO (18:05)
[2019-01-04] MEDS ORDERED: PANT40TA65 PO (18:05)
[2019-01-04] MEDS ORDERED: oxyCODONE HCL 5 MG CAP PO PRN (18:10)
[2019-01-05] MEDS: HYDROmorphone HCL 2 MG/ML SDV IVP PRN ×3 (01:43→07:51)
[2019-01-05 04:22] VITALS: BP 127/77
[2019-01-05] MEDS: SUCRALFATE 1 GM TAB PO SCH (06:11)
[2019-01-05 07:15] VITALS: BP 111/68
--- NOTE | 2019-01-05 08:27 | General Surgery Progress Note ---
Subjective Progress Notes Subjective No issues overnight. No BMs or signs of GI bleeding. Physical Exam Vital Signs Date Time Temp Pulse Resp B/P (MAP) Pulse Ox O2 Delivery O2 Flow Rate FiO2 01/05/19 07:15 99.0 92 18 111/68 (82) 90 Room Air 01/05/19 04:22 2.0 Intake and Output 01/05/19 07:04 Intake Total 1230.5 ml Output Total 400 ml Balance 830.5 ml Intake Oral 1140 ml IV Total 90.5 ml Output Urine Total 400 ml # Voids 1 General Appearance: Alert, Awake, No Acute Distress, Afebrile Result Diagram: 01/04/19 1321 01/04/19 0511 Assessment and Plan Problems: (1) GI (gastrointestinal hemorrhage) Status: Acute Assessment & Plan: 01/03/19: Based on his CT scan from today, the pancreatic cancer appears to be progressing and now appears to be invading into the adjacent stomach wall. This certainly could be the source of his GI bleeding. He has been using Aleve for abdominal pain. Will avoid blood thinners, start PPI drip, and we will plan on EGD today to look for the source of the bleeding, I suspect either peptic ulcer disease or the neoplasm eroding into the stomach. I have explained this plan to the patient in detail along with the alternatives, risks, and expected recovery. He indicates his understanding of this discussion and his questions have been answered. He would like to proceed with this plan including EGD. I also discussed a blood transfusion but he would like to hold off until his next blood count is completed this evening to see if his hemoglobin declines further. He is asymptomatic from his anemia and so this is not unreasonable. 01/04/19: EGD reveals the pancreatic cancer has eroded into his stomach and is ulcerated. Friable but no active bleeding. Will convert IV PPI to PO PPI and add carafate. H/H up after transfusion. Will stop IV fluids and start regular diet and recheck H/H this afternoon. Hopeful for d/c this afternoon. It'll be important to resume chemotherapy HUGH as there's really nothing surgically that I can offer regarding his advanced pancreatic cancer or his gastric involvement with ulcerations. I discussed this with him and he seems to understand. 01/05/19: No signs of GI bleeding. H/H stable. D/C this morning. He'll go directly down to [facility] for chemotherapy this morning. (2) Pancreatic cancer Status: Chronic Condition STable. Time Spent: < 30 min Exam Sepsis Risk: No Definite Risk Problem Qualifiers (1) GI (gastrointestinal hemorrhage): GI bleed type/associated pathology: unspecified gastrointestinal hemorrhage type Qualified Codes: K92.2 - Gastrointestinal hemorrhage, unspecified (2) Pancreatic cancer: Pancreatic malignancy location: body of pancreas Qualified Codes: C25.1 - Malignant neoplasm of body of pancreas ELLIOTT BANDA MD Jan 05, 2019 08:27
== END 2019-01-05 08:20 | disposition home or self-care (01) | DRG 375 ==
LOC: ER 14:17 → MED 15:28
PROVIDERS: ADMIT Surgery; ATTEND Surgery
PROC: 30233N1 Transfusion of Nonautologous Red Blood Cells into Peripheral Vein, Percutaneous Approach (ICD-10-PCS; 2019-01-03)
PROC: 0DJ08ZZ Inspection of Upper Intestinal Tract, Via Natural or Artificial Opening Endoscopic (ICD-10-PCS; principal; 2019-01-03 20:31)
DX: C78.89 Secondary malignant neoplasm of other digestive organs (principal); K92.1 Melena; D62 Acute posthemorrhagic anemia; C25.1 Malignant neoplasm of body of pancreas; Z96.89 Presence of other specified functional implants; Z92.21 Personal history of antineoplastic chemotherapy
CPT/HCPCS: 74177; 82040; 82247; 82274; 82310; 82374; 82435; 82565; 82947; 83605; 83690; 83735; 84075; 84132; 84155; 84295; 84450; 84460; 84520; 85014; 85018; 85025; 85610; 85730; 86677; 86850; 86900; 86901; 86920; 87040; 96361; 96374; 96375; 99285; C9113; J1170; J2270; J2405; J3010; J3490; J7030; J7040; J7050; P9016; Q9967